=== PATIENT | male | born 1965 | race African-American/Black ===

== ENCOUNTER 2016-08-24 01:50 | Inpatient (IN) | payer MEDICARE ==
--- NOTE | ~2016-08-24 | EKG ---
PATIENT: JOSH DAWN UNIT #: [id number] Ventricular Rate: 65 BPM Atrial Rate: 65 BPM P-R Interval: 142 ms QRS Duration: 84 ms Q-T Interval: 430 ms QTC Calculation(Bezet): 447 ms P Avinger: 46 degrees Calculated R Avinger: 41 degrees Calculated T Avinger: 46 degrees Diagnosis Line: Normal sinus rhythm Diagnosis Line: Minimal voltage criteria for LVH, may be normal Diagnosis Line: variant Diagnosis Line: Borderline ECG Diagnosis Line: No previous ECGs available Diagnosis Line: Confirmed by RIMA CALHOUN MD ([id number]) on Diagnosis Line: 08/24/2016 8:02:39 PM INTERPRETING MD: ALEC
--- NOTE | ~2016-08-24 | DS ---
Unit #: [id number] #: [id number] Patient: JOSH DAWN [id number] [address] [address] [id number] I MR#: [id number] NAME: JOSH DAWN ROOM: 570 Age: 50 Sex: M Admission Date: 08/24/2016 : 1965 Discharge Date: 08/25/2016 Attending Physician: Denita Lemos M.D. Primary Care Physician: Primary Care Physician No DISCHARGE SUMMARY DISCHARGE DIAGNOSES 1. Acute kidney injury. 2. Hyponatremia. 3. Dehydration. 4. Smoking. 5. Acute bronchitis. 6. Depression. 7. History of bipolar. CONSULTANTS None. PROCEDURES None. LABORATORY Sodium 141, potassium 4.0, creatinine 0.9, magnesium 2.1. TSH 0.56. Urine toxicology screen negative. IMAGING No active disease. ALLERGIES None. DISCHARGE MEDICATIONS 1. Albuterol two puffs inhalation q.4 h. p.r.n. shortness of breath. 2. Symbicort two puffs inhalation b.i.d. 3. Flonase 16 grams nasally daily. 4. Depakote 500 h.s. 5. Neurontin 400 q.i.d. 6. Zoloft 100 daily. 7. Meclizine 25 t.i.d. 8. Seroquel 100 h.s. 9. Norvasc 5 mg p.o. b.i.d. 10. Lopressor 100 p.o. b.i.d. 11. Prazosin 6 mg h.s. 12. Omeprazole 20 daily. HOSPITAL COURSE This 50-year-old admitted because of sore throat and shortness of breath. Acute kidney injury. Most likely secondary to dehydration and losartan and hydrochlorothiazide which has been discontinued. The patient received Unit #: [id number] #: [id number] Patient: JOSH DAWN IV fluids. Currently, creatinine resolved. Hyponatremia. Most likely secondary to hypovolemia. Patient received IV fluids. Currently, sodium is better. Also possibility is SIADH because he is on Depakote, Zoloft, and Seroquel but I am going to continue his medications for now because his sodium got better by itself with fluids. Acute bronchitis. Patient was started on prednisone and patient received albuterol. Currently breathing better. No prednisone at home. Hypertension. Because I am going to hold off on his hydrochlorothiazide and losartan, I am going to increase his Norvasc to 5 mg p.o. b.i.d. DISPOSITION The patient will be discharged home. FOLLOWUP Follow with family physician in one week time. Patient will have BMP in one week time and follow with PCP with results. Dictated by... Aida Moore/alka TD: 08/25/2016 20:55 JOB #: [id number] DISCHARGE SUMMARY X Denita Lemos MD X DISCHARGE SUMMARY
--- NOTE | ~2016-08-24 | CR63 ---
[facility] A Service of [facility] & [facility] RADIOLOGY TEXT RESULTS PATIENT: JOSH DAWN LOCATION: [facility] 570-01 : [birth year] UNIT #: [id number] AGE: [address]: Denita Lemos MD SEX: M ORDER DR: [id number] [facility] [address] [facility] [place], [place] [address] [id number] MR#: [id number] Acc #: [id number] NAME: JOSH DAWN : 1965 SEX: M STUDY DATE/TIME: 08/24/2016 1:48 UNIT: [facility] ROOM: [facility] STUDY DESCRIPTION: CR Chest 2 View Attending Physician: Michael Ball M.D. Ordering Physician: Serafin Vallejo P.A.-C. Primary Care Physician: Primary Care Physician No MEDICAL IMAGING REPORT This report is preliminary unless electronic signature is present EXAM Chest x-ray 08/24/2016. HISTORY 50-year-old male in the ED with new onset shortness of air, breathing difficulty beginning earlier today. TECHNIQUE AP portable chest x-ray. FINDINGS The heart size and pulmonary vascularity are normal. The lungs appear clear. No visible pulmonary infiltrate or pleural effusion. No change since 04/13/2016. IMPRESSION No active disease. No change since 04/13/2016. Dictated by... Kush Keenan M.D. THIS IS AN ELECTRONICALLY VERIFIED REPORT Kush Keenan M.D. at 08/25/2016 9:54 PM NELIAW/damien TD: 08/25/2016 08:05 JOB #: [id number] MEDICAL IMAGING REPORT COPY
--- NOTE | ~2016-08-24 | A ---
[facility] Nutrition Therapy DATE: 08/25/16 Patient: JOSH DAWN Physician: JESUS Address: [address] Room/Bed: [address] [place] [address], Zip: [place] [address] Admit Date: 08/24/16 Date of : [birth year] Height: 6 0 Weight: 161 73.27 NUTRITIONAL ASSESSMENT: REASON: 4 NUTRITION RISK PT RE: 25# WEIGHT LOSS, ALSO CONSULT RECEIVED PT IS 50 Y.O. MALE ADMITTED FOR HYPONATREMIA, MARTIN PMH: HTN, MARIPOSA, TIA, BRONCHITIS, ANXIETY, DEPRESSION, ?BIPOLAR DISORDER Anthropometrics: 5'11" (PER PT), WT: 161# (73 KG), BMI: 22.5, 93%IBW Labs: REVIEWED; WNL Meds: LOPRESSOR, PROTONIX, KCL, PREDNISONE, NACL I/O & Bowel function: 2545/2400 Skin Integrity: NO KNOWN SKIN ISSUES Estimated Nutrition Needs: INCREASED NUTRIENT NEEDS 2' WEIGHT LOSS NOTED, DECREASED APPETITE Assessment: CHART REVIEWED AND EVENTS NOTED. PT SEEN FOR WEIGHT LOSS + CONSULT RECEIVED. PT REPORTS DECREASED PO INTAKE 2' DECREASED APPETITE PAST SEVERAL DAYS 2' "NOT FEELING WELL". PT REPORTS APPETITE GENERALLY FAIR/GOOD. PT ADDS LOSING ~20# PAST 10 MONTHS (SINCE OCTOBER 2015)/11% SIGNIFICANT WEIGHT LOSS NOTED (NOT SEVERE). PT REPORTS LOSING WEIGHT SINCE HIS STROKE AND LOSING HIS GIRLFRIEND AND A FAMILY MEMBER. . THIS RD ENCOURAGED SMAL FREQUENT MEALS + SUPPLEMENT INTAKE FOR INCREASED PROTEIN AND KCAL NEEDS, PT AGREED TO ENSURE SHAKES BID. PT REPORTS CONSUMING ONE MEAL DAILY AT HOME. RD ENCOURAGED PT TO ADD 1-2 MEALS TO HIS DAY, PT AGREED. PT REPORTED NO DIET QUESTIONS AT THIS TIME. RD TO CONTINUE TO FOLLOW OF NOTE, PT ATE 100% LUNCH TODAY (PT HAD LUNCH TRAY AT BEDSIDE). Dx: INADEQUATE PROTEIN-ENERGY INTAKE R/T DECREASED APPETITE, PMH AEB PT REPORT ABOVE, WEIGHT LOSS NOTED. Intervention: 1. REGULAR DIET 2. RD CONSULT 3. ENSURE SHAKES BID Monitoring, Evaluation and Goals: 1. PO INTAKE; CONSUME >50% OF MEALS W/NO C/O N/V/D 2. WEIGHTS; PREVENT FURTHER WEIGHT LOSS 3. GI; PROMOTE REGULAR GI FUNCTION [facility] Nutrition Therapy DATE: 08/25/16 Patient: JOSH DAWN Physician: JESUS Address: [address] [place] [address] Room/Bed: [address] [place] [address], Zip: [place] [address] Admit Date: 08/24/16 Date of : [birth year] Height: 6 0 Weight: 161 73.27 MONITOR: -PO INTAKE/APPEETITE -WEIGHTS -SUPPLEMENT INTAKE Recommendations: 1. ORDER AUBRIE ENSURE SHAKES BID W/MEALS FOR SUPPLEMENTAL NUTRITION 2. APPRECIATE FAMILY AND STAFF TO ENCOURAGE ADEQUATE KCAL AND PROTEIN INTAKE 3. CONSIDER PAINT TECHNICIAN CONSULT RE: PT REPORT ABOVE OF LOSING FAMILY MEMBERS RD WILL F/U PER PROTOCOL PT IS MODERATELY COMPROMISED Respectfully, VINCE HINKLE MS, RD, LD [facility] cc: client file
--- NOTE | ~2016-08-24 | HP ---
Unit #: [id number] #: [id number] Patient: JOSH DAWN [id number] [address] [address] [id number] I MR#: [id number] NAME: JOSH DAWN ROOM: 570 Age: 50 Sex: M Admission Date: 08/24/2016 : 1965 Attending Physician: Michael Ball M.D. Primary Care Physician: Primary Care Physician No HISTORY AND PHYSICAL CHIEF COMPLAINT Pain in throat, shortness of air and some difficulty in swallowing. HISTORY OF PRESENT ILLNESS This is a 50-year-old black male who presented to the emergency room for the above complaints. Reported his symptoms started three to four days ago and has gradually been getting worse. He also reports to have some thick whitish secretions that he has difficulty spitting out. No fever, no chills. No nausea or vomiting, abdominal pain or diarrhea. On his further evaluation in the ER, he was found to be hyponatremic with sodium 124 and hypokalemic with potassium of 3. He is being admitted for further evaluation. PAST MEDICAL HISTORY Remarkable for: 1. Hypertension. 2. Tobacco use. 3. History of bronchitis. 4. Depression. 5. Question of bipolar disorder. PAST SURGICAL HISTORY Unremarkable. HOME MEDICATIONS 1. Seroquel 100 mg h.s. 2. Zoloft 100 mg daily. 3. Gabapentin 400 mg q.i.d. 4. Depakote 500 mg h.s. 5. Losartan/hydrochlorothiazide one tablet p.o. daily. 6. Metoprolol 100 mg b.i.d. 7. Omeprazole 20 mg daily. 8. Flonase. 9. Symbicort. 10. Ventolin. 11. Meclizine as needed. 12. Amlodipine 5 mg daily. 13. Prazosin 6 mg h.s. ALLERGIES No known drug allergies. SOCIAL HISTORY Lives at home. Smokes one-half pack per day. Drinks occasional alcohol. Unit #: [id number] #: [id number] Patient: JOSH DAWN FAMILY HISTORY Noncontributory. REVIEW OF SYSTEMS A 12-point review of systems completed, please see HPI. PHYSICAL EXAMINATION GENERAL APPEARANCE: He is awake, alert, oriented to time, place and person. VITAL SIGNS: Temperature 98.4, respiratory rate 18, blood pressure 137/89. HEENT: EOMI. Pupils equal and reactive to light. NECK: Supple. No thyromegaly noted. CHEST: Good air entry overall. Has mild wheezing. HEART: Regular rhythm, S1, S2, no murmurs. ABDOMEN: Soft, nontender. Bowel sounds positive. EXTREMITIES: No edema noted. DIAGNOSTIC STUDIES LABORATORY: Sodium this morning is 128, on admission was 124. Potassium 3.1, was 3.0 on admission. CO2 is 21. AST and ALT are normal. TSH 0.56. ASSESSMENT 1. Hyponatremia. Most likely due to dehydration versus SIADH due to his Depakote, Zoloft, and Seroquel. 2. Acute kidney injury with creatinine 1.6 on admission. 3. Tobacco use. 4. Bronchitis. 5. Depression/bipolar disorder. PLAN 1. Sodium is improving. Will continue IV fluids of normal saline. 2. Continue patch. 3. Check serum osmolality, urine osmolality, and urinary sodium. 4. Replace potassium 40 mEq p.o. now and then potassium and magnesium protocol. 5. Prednisone [address] daily[address] 6. Consult Dr. Valladares. 7. Continue all home medications. 8. Monitor electrolytes closely including sodium and potassium. Dictated by Aida Neumann/alka TD: 08/24/2016 14:12 JOB #: [id number] Unit #: [id number] #: [id number] Patient: JOSH DAWN HISTORY AND PHYSICAL X Yenny Harley MD X HISTORY AND PHYSICAL
[2016-08-24 02:02] LABS: URINE SOURCE CLEAN CATCH
[2016-08-24 02:05] LABS: BASOPHIL# 0.2 X10e3 (0-0.3); BASOPHIL% 1.6 % (0-2.5); EOSINOPHIL# 0.1 X10e3 (0-0.7); EOSINOPHIL% 0.5 % (0.0-7.0); HEMATOCRIT 47.6 % (38.0-50.0); HEMOGLOBIN 15.8 gm/dL (13.0-16.0); LYMPHOCYTE# 3.3 X10e3 (1.0-3.5); LYMPHOCYTE% 28.1 % (17.0-45.0); MEAN CELL VOLUME 100.2 FL (83-96); MEAN CORPUSCULAR HEMOGLOBIN 33.3 PG (28-34); MEAN CORPUSCULAR HGB CONC 33.2 g/dL (30-36); MONOCYTE# 0.9 X10e3 (0-1.0); MONOCYTE% 7.8 % (3.0-12.0); NEUTROPHIL# 7.3 X10e3 (1.5-7.1); PLATELET COUNT 192 X10e3 (140-420); RED BLOOD COUNT 4.75 X10e (3.90-5.60); WHITE BLOOD COUNT 11.8 X10e3 (4.0-10.5)
[2016-08-24 02:07] LABS: URINE APPEARANCE CLEAR; URINE BILIRUBIN NEG (NEG); URINE BLOOD 1+ (NEG); URINE COLOR YELLOW; URINE GLUCOSE NEG (NEG); URINE KETONE NEG (NEG); URINE LEUKOCYTE ESTERASE NEG (NEG); URINE NITRATE NEG (NEG); URINE PH 5.5 (5-8); URINE PROTEIN NEG (NEG); URINE SPECIFIC GRAVITY 1.012 (1.003-1.035); URINE UROBILINOGEN 0.2 MG/DL (NEG)
[2016-08-24 02:08] LABS: DIFF IND NO
[2016-08-24 02:09] LABS: URBCS1 AUWI 0-2 /[HPF] (0-2); URINE BACTERIA AUWI NEG (NEGATIVE); URINE SQUAMOUS EPITHELIAL CELL NONE SEEN /[HPF]; UWBCS1 AUWI 0-2 (0-5)
[2016-08-24 02:11] LABS: CULTURE INDICATED? NO
[2016-08-24 02:24] LABS: AMPHETAMINE NEG (NEG); BARBITURATES NEG (NEG); BENZODIAZEPINES NEG (NEG); COCAINE NEG (NEG); MARIJUANA NEG (NEG); OPIATES NEG (NEG); TRICYCLIC ANTIDEPRESSANTS NEG (NEG); U METHADONE NEG (NEG)
[2016-08-24 03:09] LABS: ALBUMIN SERUM 4.9 g/dL (3.5-5.0); ALKALINE PHOSPHATASE 55 U/L (32-92); ALT (SGPT) 20 U/L (10-40); AST (SGOT) 35 U/L (10-42); BILIRUBIN, DIRECT 0.3 mg/dL (0.0-0.2); BILIRUBIN,INDIRECT 1.2 mg/dL (0.0-0.9); BILIRUBIN,TOTAL 1.5 mg/dL (0.2-2.0); BLOOD UREA NITROGEN 22 mg/dL (9-23); BUN/CREATININE RATIO 13.75; CALCIUM SERUM 9.1 mg/dL (8.4-10.2); CARBON DIOXIDE 24 mmol/L (22-31); CHLORIDE 92 mmol/L (100-111); CREATININE SERUM 1.6 mg/dL (0.6-1.4); GLOM FILT RATE Estimated 59.6 mL/min (>60); GLUCOSE FASTING 202 mg/dL (70-110); PROTEIN TOTAL SERUM 7.6 g/dL (6.0-8.3)
[2016-08-24 03:10] LABS: ALCOHOL BLOOD <5 mg/dL (0); SODIUM 124 mmol/L (135-145)
[2016-08-24 04:30] LABS: POC - CKMB 1.4 ng/mL (0.0-7.9); POC - TROPONIN <0.05 ng/mL (<=0.05)
[2016-08-24 07:24] LABS: BLOOD UREA NITROGEN 20 mg/dL (9-23); BUN/CREATININE RATIO 14.28; CALCIUM SERUM 9.6 mg/dL (8.4-10.2); CARBON DIOXIDE 21 mmol/L (22-31); CHLORIDE 93 mmol/L (100-111); CREATININE SERUM 1.4 mg/dL (0.6-1.4); GLOM FILT RATE Estimated ABOVE60 mL/min (>60); GLUCOSE FASTING 122 mg/dL (70-110); MAGNESIUM 2.1 mg/dL (1.6-3.0); POTASSIUM 3.1 mmol/L (3.5-5.1); SODIUM 128 mmol/L (135-145)
[2016-08-24] MEDS ORDERED: SEROQUEL PO (12:12)
[2016-08-24] MEDS ORDERED: ZOLOFT100 MG PO (12:13)
[2016-08-24] MEDS ORDERED: GABAPENTIN400 MG PO (12:14)
[2016-08-24] MEDS ORDERED: DEPAKOTE PO (12:19)
[2016-08-24] MEDS ORDERED: LOSARTAN-HCTZ1 EAC1 PO (12:19)
[2016-08-24] MEDS ORDERED: METOPROLOL TAR100 MG PO (12:20)
[2016-08-24] MEDS ORDERED: OMEPRAZOLE20 M2 PO (12:20)
[2016-08-24] MEDS ORDERED: FLONASE 0.05% N16 G1 (12:21)
[2016-08-24] MEDS ORDERED: ALBUTEROL17 GM INH (12:22)
[2016-08-24] MEDS ORDERED: SYMBICORT INH (12:22)
[2016-08-24] MEDS ORDERED: ANTIVERT PO (12:23)
[2016-08-24] MEDS ORDERED: AMLODIPINE BESYL5 MG PO (12:24)
[2016-08-24] MEDS ORDERED: PRAZOSIN HCL2 MG PO (12:25)
[2016-08-24 16:36] LABS: SODIUM URINE RANDOM 45 mmol/L
[2016-08-24 16:54] LABS: OSMOLALITY,URINE 345 mOsmo/kg (250-900)
[2016-08-25 08:55] LABS: BLOOD UREA NITROGEN 13 mg/dL (9-23); BUN/CREATININE RATIO 14.44; CALCIUM SERUM 9.9 mg/dL (8.4-10.2); CARBON DIOXIDE 25 mmol/L (22-31); CHLORIDE 108 mmol/L (100-111); CREATININE SERUM 0.9 mg/dL (0.6-1.4); GLOM FILT RATE Estimated ABOVE60 mL/min (>60); GLUCOSE FASTING 97 mg/dL (70-110); MAGNESIUM 2.1 mg/dL (1.6-3.0); SODIUM 141 mmol/L (135-145)
== END 2016-08-25 19:00 | disposition home or self-care (01) | DRG 683 ==
LOC: CED 01:50 → CEDOF 04:40 → C5C 08:30
PROVIDERS: Internal Medicine; Internal Medicine Endocrinology, Diabetes & Metabolism; Physician Assistant
DX: N17.9 Acute kidney failure, unspecified (principal); E22.2 Syndrome of inappropriate secretion of antidiuretic hormone; E86.0 Dehydration; J20.9 Acute bronchitis, unspecified; F31.9 Bipolar disorder, unspecified; I10 Essential (primary) hypertension; E87.6 Hypokalemia; E86.1 Hypovolemia; F17.210 Nicotine dependence, cigarettes, uncomplicated
CPT/HCPCS: 36415; 71020; 80048; 80076; 80307; 81003; 82553; 83735; 83930; 83935; 84300; 84443; 84484; 85025; 90688; 93005; 94640; 94664; 96361; 96374; 99285; G0480; J1200; J2060